=== PATIENT | female | born 1985 | race Two or more races ===

== ENCOUNTER 2019-01-28 15:12 | Emergency (ER) | payer SELFPAY ==
[~2019-01-28] VITALS: Ht 154.9 cm; Wt 62.1 kg
[2019-01-28 15:55] VITALS: BP 130/85
[2019-01-28] MEDS ORDERED: KETOROLAC TROMETH 60MG/2ML VIAL IM ONE (16:15)
[2019-01-28] MEDS ORDERED: METHOCARBAMOL 500 MG TAB PO ONE (16:15)
== END 2019-01-28 17:07 | disposition home or self-care (01) ==
LOC: ER 15:12
DX: S46.912A Strain of unspecified muscle, fascia and tendon at shoulder and upper arm level, left arm, initial encounter (principal); X58.XXXA Exposure to other specified factors, initial encounter; Y93.89 Activity, other specified; Y99.8 Other external cause status; Y92.89 Other specified places as the place of occurrence of the external cause
CPT/HCPCS: 73030; 96372; 99283; J1885